=== PATIENT | female | born 1960 | race Caucasian/White ===

== ENCOUNTER 2018-11-30 17:05 | Emergency (ER) | payer MEDICAID, OTHER ==
[~2018-11-30] VITALS: Ht 154.9 cm; Wt 88.6 kg
[2018-11-30] MEDS ORDERED: CefTRIAXone 250MG inj IM ONE (18:15)
[2018-11-30] MEDS ORDERED: CefTRIAXone 250MG IM Kit w/LIDOcaine IM ONE (18:20)
[2018-11-30 18:39] VITALS: BP 199/95
== END 2018-11-30 18:41 | disposition home or self-care (01) ==
LOC: ER 17:06
DX: Z00.00 Encounter for general adult medical examination without abnormal findings (principal)
CPT/HCPCS: 96372; 99283; J0696